=== PATIENT | female | born 2000 | race Two or more races ===

== ENCOUNTER 2021-02-16 14:16 | Emergency (ER) | payer OTHER ==
[~2021-02-16] VITALS: Ht 167.6 cm; Wt 54.4 kg
[2021-02-16] MEDS ORDERED: MEDROLPACK PO (21:07)
== END 2021-02-16 21:16 | disposition home or self-care (01) ==
LOC: ER 14:16
DX: J03.90 Acute tonsillitis, unspecified (principal); J02.9 Acute pharyngitis, unspecified; Z03.818 Encounter for observation for suspected exposure to other biological agents ruled out

== ENCOUNTER 2022-09-28 08:08 | Inpatient (IN) | payer OTHER ==
[~2022-09-28] VITALS: Ht 170.2 cm; Wt 59.9 kg
[~2022-09-28 08:08] MED LIST: MEDROLPACK PO
--- NOTE | 2022-09-28 08:13 | NUR ---
PACIENTE ALERTA Y ORIENTADA X 3. REFIERE FIEBRE, DOLOR DE GARGANTA Y AMIGDALA DERECHA INFLAMADA,REFIERE 2 RODRIGUES CON SINTOMAS.
[2022-09-28] MEDS ORDERED: AZITHROMYCIN250 MG PO (08:20)
[2022-09-28] MEDS ORDERED: CLARITIN10 M1 (08:21)
[2022-09-28] MEDS ORDERED: RAYOS5 MG (08:21)
[2022-09-28] MEDS ORDERED: AMOX1TAB5 (08:21)
[2022-09-28] MEDS ORDERED: BUTALBIT-ACETA1 EACH (08:22)
--- NOTE | 2022-09-28 09:01 | NUR ---
PTE EVALUADO POR DR MOLINA MADODXIEN [place] [facility] A PTE. MS GONCALVES EJECUTA ORDENES BAJO MEDIDAS ACEPTICAS. PTE PEND A RESULTADOS DE LABS Y REALIZACION DE CT.
== END 2022-10-04 14:44 | disposition home or self-care (01) | DRG 153 ==
LOC: ER 08:08 → MEDJ 19:32
PROVIDERS: ADMIT Internal Medicine; ATTEND Internal Medicine
PROC: BW2FYZZ Computerized Tomography (CT Scan) of Neck using Other Contrast (ICD-10-PCS; principal; 2022-09-28)
PROC: BW28ZZZ Computerized Tomography (CT Scan) of Head (ICD-10-PCS; 2022-09-30)
PROC: BW2FZZZ Computerized Tomography (CT Scan) of Neck (ICD-10-PCS; 2022-09-30)
DX: J36 Peritonsillar abscess (principal); B95.5 Unspecified streptococcus as the cause of diseases classified elsewhere